=== PATIENT | female | born 1950 | race Caucasian/White ===

== ENCOUNTER 2017-11-29 10:01 | Outpatient (CLI) | payer MEDICARE, BC | END 2017-11-29 10:02 | disposition home or self-care (01) | LOC: BICMAMMO 10:01 | PROVIDERS: ATTEND Family Medicine | DX: Z12.31 Encounter for screening mammogram for malignant neoplasm of breast (principal) | CPT/HCPCS: 77063; 77067 ==

== ENCOUNTER 2018-11-26 06:13 | Outpatient (CLI) | payer MEDICARE, BC ==
[2018-11-26 11:40] LABS: Bilirubin Negative (Negative); Blood, Urine Negative (Negative); Clarity CLEAR (Clear); Glucose, Urine (Dipstick) Negative (Negative); Leukocyte Negative (Negative); Nitrite Negative (Negative); Protein, Urine (Dipstick) Negative (Neg-Trace); Specific Gravity, Urine 1.013 (1.002-1.036); Urobilinogen 0.2 mg/dL (0.2-1.0); pH, Urine 7.5 (5.0-9.0)
[2018-11-26 11:41] LABS: Prothrombin Time 13.2 SEC (12.0-14.7)
[2018-11-26 11:43] LABS: Bacteria/HPF None Seen HPF (None Seen); Hyaline Casts/LPF 0-3 HYALINE CAST LPF (0-3 Hyaline); RBC/HPF 0-3 HPF (0-3); Squamous Epithelial None Seen HPF (0-3); WBC/HPF None Seen HPF (0-3)
== END 2018-11-26 06:14 | disposition home or self-care (01) ==
LOC: LABBT 06:13
PROVIDERS: ATTEND Orthopaedic Surgery
DX: Z01.818 Encounter for other preprocedural examination (principal); M17.11 Unilateral primary osteoarthritis, right knee
CPT/HCPCS: 81001; 85610; 86850; 86900; 86901; 87081; 93005; 93010

== ENCOUNTER 2018-12-01 06:04 | Inpatient (IN) | payer MEDICARE, BC ==
[2018-12-01] MEDS ORDERED: Bupivacaine PF 0.5% 30 ML VIAL ONE (06:27)
[2018-12-01] MEDS ORDERED: Sodium Chloride 0.9% 100 ML ONE (06:38)
[2018-12-01] MEDS ORDERED: CEFAZOLIN 2 GM/50 ML BAG ONE (06:38)
[2018-12-01] MEDS ORDERED: Tranexamic Acid 1,000 MG/10 ML VIAL ONE ×2 (06:38→10:43)
[2018-12-01] MEDS ORDERED: Midazolam HCl 2 mg/2 ml Vial ONE (06:59)
[2018-12-01] MEDS ORDERED: Fentanyl 100 MCG/2 ML VIAL ONE ×4 (06:59→11:44)
[2018-12-01] MEDS ORDERED: Promethazine HCl 25 MG/ML VIAL IM PRN ×3 (07:42→10:19)
[2018-12-01] MEDS ORDERED: Zolpidem Tartrate 5 MG TAB PO PRN ×2 (07:42→08:32)
[2018-12-01] MEDS ORDERED: Ondansetron PF 4 MG/2 ML Vial IVP PRN ×2 (07:42→08:32)
[2018-12-01] MEDS ORDERED: HYDROcodone/Acetaminophen 10/325 mg Tablet PO PRN ×2 (07:42)
[2018-12-01] MEDS ORDERED: Ropivacaine HCl/PF 250 ML in Premix Bag 1 BAG NERVE BLCK SCH (07:42)
[2018-12-01] MEDS ORDERED: traMADol HCl 50 MG TAB PO PRN ×2 (07:42)
[2018-12-01] MEDS ORDERED: Fentanyl 100 MCG/2 ML VIAL IV PRN (07:43)
[2018-12-01] MEDS ORDERED: diphenhydrAMINE 25 MG CAP PO PRN (08:32)
[2018-12-01] MEDS ORDERED: Acetaminophen 325 MG TAB PO PRN (08:32)
[2018-12-01] MEDS ORDERED: CEFAZOLIN/Water 2 GM/20 ML SYRINGE SLOW IVP SCH (08:45)
[2018-12-01] MEDS ORDERED: Non-Formulary Item 1 EACH (Multivitamin [Multivitamins] 1 CAP) PO SCH (09:00)
[2018-12-01] MEDS ORDERED: Aspirin 81 mg Enteric Coated Tablet PO SCH (09:00)
[2018-12-01] MEDS ORDERED: Ondansetron HCl/PF 4 MG/2 ML Vial IVP PRN (10:19)
[2018-12-01] MEDS ORDERED: Promethazine HCl 25 MG/ML VIAL SLOW IVP PRN (10:19)
[2018-12-01] MEDS ORDERED: Ketorolac Tromethamine 30 MG/ML VIAL ONE (10:43)
[2018-12-01] MEDS ORDERED: Acetaminophen 1,000 MG in Premix Bag 1 BAG IVPB PRN (11:23)
[2018-12-01 13:07] VITALS: BMI 30.7
--- NOTE | 2018-12-01 13:07 | OP ---
DATE OF PROCEDURE: 12/01/2018 GROUP [facility] DEPARTMENT HEAD: Christopher Nina MD as well as Floresita Capellan PA-C PREOPERATIVE DIAGNOSIS: Right knee osteoarthrosis. POSTOPERATIVE DIAGNOSIS: Right knee osteoarthrosis. PROCEDURE: Right total knee replacement using Tim pinless navigation. ANESTHESIA: She had general anesthetic as well as preoperative block. BLOOD LOSS: Minimal. COMPLICATIONS: None. DISPOSITION: Recovery room in stable condition. IMPLANTS: To the right knee, [place]ham triathlon total knee system with a size 2 cruciate retaining femur, we used a size 2 primary tibial base plate, we used a 2 x 11 mm CS X3 tibial bearing, and we used a 27 x 8 symmetric patella, which was X3 as well. INDICATIONS: A 68-year-old female, who is active and had her left knee replaced and did well from that and at this time has failed nonoperative treatment for her right knee arthritis and wished to have the right knee replaced this time. PROCEDURE IN DETAIL: After all appropriate consent forms were explained and signed, the patient was taken back to the operating room and at this time was given general anesthetic. Once the level of anesthesia was appropriate, a well-padded tourniquet was placed on the leg, and the leg was then prepped and draped in standard surgical fashion. The limb was exsanguinated and tourniquet taken up to 300 mmHg. Midline incision was made with a 10 blade down through the skin and subcutaneous tissue. Bovie electrocautery was used to coagulate any brisk venous bleeding. A new blade was used to make a medial parapatellar arthrotomy. Small subperiosteal release was performed medially and excess fat pad was removed. The knee was flexed up to gain access to the femur. The femur was navigated and distal femoral resection was made. Epicondylar access was used to align our sizing jig and this was pinned in place. 4:1 cutting block was applied and pinned. Anterior and posterior chamfer cuts were then made. We navigated out our proximal tibia and made our proximal tibial resection. Spreaders were used to remove any posterior osteophytes off the back of the femur as well as remaining meniscal tissue. This was pinned in place. We trialed the polyethylene and a polyethylene gave us full extension and good stability throughout range of motion. Two towel clips and a saw were used to cut our patella. Three lug nuts were drilled and patella was trialed which sat nicely in the trochlear groove. We then drilled our femur and punched our tibia. All components were removed. The knee was thoroughly irrigated and dried. Cement was mixed into the cement gun on the back table. Components were then placed. The knee was held out in full extension until the cement had dried. All excess bone cement was removed. Multiple #2 Vicryl stitches as well as a Quill were used to close our extensor mechanism. 0 Quill followed by a running Monoderm was then used to close the skin. Surgicel glue was then used on the skin. Once this had dried, soft tissue dressing was applied to the limb, tourniquet was let down, and the toes pinked up nicely. The patient was then awakened and taken to the recovery room in stable condition. All counts were correct at the end of the case. The patient did receive preoperative IV antibiotics. The patient was injected with Exparel for postoperative pain relief. Job ID: [id number]
[2018-12-01] MEDS ORDERED: Bupivacaine 0.25% HCL 30 ML VIAL ONE (13:17)
[2018-12-01] MEDS ORDERED: Ropivacaine 0.5% HCl/PF (150 MG/30 ML VIAL) ONE (13:17)
[2018-12-01] MEDS ORDERED: Ondansetron PF 4 MG/2 ML Vial ONE (13:39)
[2018-12-01] MEDS ORDERED: Dexamethasone 20 MG/5 ML VIAL ONE (13:39)
[2018-12-01] MEDS ORDERED: PROPOFOL 200 MG/20 ML VIAL ONE (13:39)
[2018-12-01] MEDS ORDERED: ePHEDrine/0.9% NaCl/PF SYRINGE 50 mg/10 ml ONE (13:39)
[2018-12-01] MEDS ORDERED: PHENYLEPHRINE-NS 100 MCG/ML 10 ML SYRINGE ONE (13:39)
[2018-12-01] MEDS: Aspirin 81 mg Enteric Coated Tablet PO SCH ×2 (13:47→19:58)
[2018-12-01] MEDS: Fluticasone Propionate Nasal Spray 16 gm Bottle NASAL SCH (13:47)
[2018-12-01] MEDS: Losartan/Hydrochlorothiazide 100 mg/25 mg Tablet PO SCH (13:48)
[2018-12-01] MEDS: Ketorolac Tromethamine 30 MG/ML VIAL IVP SCH ×3 (13:48→23:48)
[2018-12-01] MEDS: Sodium Chloride 0.9% 1,000 ML IV SCH ×3 (13:57→19:22)
[2018-12-01] MEDS: CEFAZOLIN 2 GM/50 ML-DEXTROSE 2 GM in Premix Bag 1 BAG IVPB SCH ×2 (13:58→23:49)
--- NOTE | 2018-12-01 14:23 | PDOC.FPRHP ---
- History of Present Illness Chief Complaint: Consultation for medical management History of Present Illness: Ms. Pelayo is a very pleasant 68 yo F who is POD #0 from R TKR. She reports she is feeling well currently and has good pain control. This was an elective procedure and she recovered well from a L TKR in 2015. - Allergies/Adverse Reactions Allergies Allergy/AdvReac Type Severity Reaction Status Date / Time erythromycin base Allergy Verified 07/05/16 16:55 - Home Medications Medication Instructions Recorded Confirmed Type Diltiazem HCl [Cartia XT] 240 mg PO QAM 10/26/13 12/01/18 History Fluticasone Propionate 1 spray EA NARE DAILY 10/26/13 11/26/18 History [Fluticasone Propionate Nasal [place]] Tor's Wort 1 - 2 tab PO HS 10/26/13 11/26/18 History Acetaminophen 1,000 mg PO Q6HR PRN 12/20/15 11/26/18 History Atorvastatin Calcium [Lipitor] 20 mg PO HS 12/20/15 11/26/18 History Biotin 2,500 mcg PO DAILY 12/20/15 11/26/18 History Calcium Carbonate/Vitamin D3 2 tablet PO HS 12/20/15 11/26/18 History [Calcium 500 + D] Cetirizine HCl [Zyrtec] 10 mg PO HS 12/20/15 11/26/18 History Losartan/Hydrochlorothiazide 1 tablet PO QAM 12/20/15 11/26/18 History [Losartan-Hctz 100-25 mg Tab] Multivitamin [Multivitamins] 1 cap PO DAILY 12/20/15 11/26/18 History Aspirin [Aspir-Low] 81 mg PO DAILY 11/26/18 11/26/18 History Coconut Oil 1,000 mg PO BID 11/26/18 11/26/18 History Glucosamine/D3/Boswellia Kat 2 each PO DAILY 11/26/18 11/26/18 History [Osteo Bi-Flex Tablet] Icosapent Ethyl [Vascepa] 1 tab PO HS 11/26/18 11/26/18 History Triphalia 1 cap PO DAILY 11/26/18 History Tumeric 1 tab PO DAILY 11/26/18 History - History PMHx: HTN, HLD, GERD, migraines, anxiety PSHx: L TKR (2016), Carpal tunnel release (R 2013, L 2014), Hysterectomy and BSO (1982 for fibroids), Cholecystectomy (1991), R breast biopsy FHx: Dad: CT x3; Mom: Alzheimer's, kidney cancer; Sister: Leukemia Social: Denies tobacco, alcohol, drug use, retired from [employer] - Review of Systems General: denies: fever/chills, weight/appetite/sleep changes Eyes: denies: eye pain, vision changes ENT: denies: nasal congestion, rhinorrhea Respiratory: denies: cough, congestion Cardiovascular: denies: chest pain, palpitation Gastrointestinal: denies: nausea, vomiting, diarrhea Genitourinary: denies: incontinence, dysuria Skin: denies: rashes, lesions Musculoskeletal: reports: swelling (R knee (post-op)). denies: pain, tenderness Neurological: denies: syncope, weakness Psychological: reports: anxiety, depression - Vital signs BP: 119/71 HR: 76 RR: 16 Tmax: 97.5 Pox: 96% on 2L Wt: 76 kg - Physical Exam Constitutional: NAD, awake, alert and oriented HEENT: normocephalic and atraumatic, EOMI Neck: supple, trachea midline Heart: RRR, normal S1/S2 Lungs: CTAB, no respiratory distress Abdomen: soft, non-tender, bowel sounds present -Musculoskeletal: R knee in bandage, skin discolored from iodine Skin: no rash/lesions, good turgor Heme/Lymphatic: no unusual bruising or bleeding, no purpura Psychiatric: normal mood and affect, good judgment and insight, intact recent and remote memory FMR H&P: Results - Labs Result Diagrams: 12/02/18 06:01 - EKG Interpretation EKG: NSR FMR H&P: A/P - Problem List (1) Migraine Current Visit: No Status: Acute Code(s): G43.909 - MIGRAINE, UNSP, NOT INTRACTABLE, WITHOUT STATUS MIGRAINOSUS (2) Total knee replacement status Current Visit: No Status: Acute Code(s): Z96.659 - PRESENCE OF UNSPECIFIED ARTIFICIAL KNEE JOINT (3) Allergic rhinitis Current Visit: No Status: Chronic Code(s): J30.9 - ALLERGIC RHINITIS, UNSPECIFIED (4) Anxiety Current Visit: No Status: Chronic Code(s): F41.9 - ANXIETY DISORDER, UNSPECIFIED (5) GERD (gastroesophageal reflux disease) Current Visit: No Status: Chronic Code(s): K21.9 - GASTRO-ESOPHAGEAL REFLUX DISEASE WITHOUT ESOPHAGITIS (6) Hyperlipidemia Current Visit: No Status: Chronic Code(s): E78.5 - HYPERLIPIDEMIA, UNSPECIFIED (7) Hypertension Current Visit: No Status: Chronic Code(s): I10 - ESSENTIAL (PRIMARY) HYPERTENSION - Plan 68 yo F s/p R TKR on POD #0 1. POD #0 from R TKR - Pain mgmt and PT per primary team 2. HTN - Will resume home losartan/htcz and diltiazem - Monitor 3. HLD - Home atorvastatin 4. Anxiety - Home Humb[place] Wort 5. Seasonal allergies - Home Flonase and zyrtec PRN CODE: FULL (confirmed with patient, surrogate decision maker would be son, Pilo) DVT PPX: Per primary team, recommend considering Lovenox 40u qDay or Heparin 5000u TID GI PPX: Continue Prilosec while on BID ASA Assessment and plan discussed with Dr. Walls. Addendum - Attending - Attending Attestation Date/Time: 12/01/18 [id number] I personally evaluated the patient and discussed the management with Dr. Negron I agree with the History, Examination, Assessment and Plan documented above with any addition or exceptions noted below. 68 yo female admitted for right TKR on 12/01/18. HD#1 POD#0 Consulted for medical management. Patient doing well. No complaints. Pain in well controlled. VS reviewed. Labs reviewed. Medications reviewed. Will restart home meds and adjust as indicated. Pain control per primary team. Will make sure bowel regiment available for patient due to narcotic use. Recommend antiacoagulant use for DVT ppx. Sheyla score = 6 (reduced mobility, surgery, BMI of 30). Maddi
[2018-12-01] MEDS: Atorvastatin Calcium 20 MG TAB PO SCH (19:59)
[2018-12-01] MEDS: Calcium Carbonate + Vit D 1 TAB PO SCH (20:00)
[2018-12-01] MEDS: Loratadine 10 MG TAB PO SCH (20:00)
[2018-12-01] MEDS ORDERED: Vancomycin HCl 1 GM in Premix Bag 1 BAG IVPB SCH (20:00)
[2018-12-02] MEDS: Sodium Chloride 0.9% 1,000 ML IV SCH ×2 (04:21→13:47)
[2018-12-02] MEDS: Ketorolac Tromethamine 30 MG/ML VIAL IVP SCH ×4 (05:16→23:22)
[2018-12-02 06:25] LABS: Hemoglobin 12.1 g/dL (12.0-16.0); Mean Corpuscular HGB CONC 34.4 g/dL (32.0-36.0); Mean Corpuscular Volume 93.1 fL (78.0-98.0); Mean Platelet Volume 7.1 fL (7.4-10.4); Platelet Count 259 thou/uL (130-400); RBC Distribution Width 11.6 % (11.5-14.5); Red Blood Cell (RBC) Count 3.77 mill/uL (4.20-5.40); White Blood Cell (WBC) Count 11.9 thou/uL (4.8-10.8)
[2018-12-02] MEDS: Multivitamin W/ Minerals 1 TAB PO SCH (07:23)
[2018-12-02] MEDS: Senokot S 8.6-50 MG TAB PO SCH ×2 (07:23→20:22)
[2018-12-02] MEDS: Ferrous Gluconate 324 MG TAB PO SCH ×2 (07:23→17:16)
[2018-12-02] MEDS: Aspirin 81 mg Enteric Coated Tablet PO SCH ×2 (07:24→20:20)
[2018-12-02] MEDS: Losartan/Hydrochlorothiazide 100 mg/25 mg Tablet PO SCH (07:25)
[2018-12-02] MEDS: Fluticasone Propionate Nasal Spray 16 gm Bottle NASAL SCH (07:25)
--- NOTE | 2018-12-02 08:00 | PDOC.FM ---
- Subjective Subjective: This morning patient states she has mild pain the rt knee but not more than she expected. She worked with PT yesterday and was able to walk to the nurses station and back. She denies cough, sob, or pain below her knees. She denies fevers, chills, or sweats. States it was difficult to sleep because of all the noises in the hospital but has no other complaints. - Objective Vital Signs & Weight: Vital Signs (12 hours) Temp Pulse Resp BP Pulse Ox 12/02/18 07:25 86 12/02/18 03:17 98.5 F 86 16 128/70 94 L 12/02/18 00:00 98.6 F 99 18 110/58 L 93 L 12/01/18 20:00 98.6 F 103 H 18 137/73 93 L Weight Weight 76.204 kg I&O: 12/01/18 12/02/18 12/03/18 06:59 06:59 06:59 Intake Total 2920 Output Total 2550 Balance 370 Result Diagrams: 12/02/18 06:01 Phys Exam - Physical Examination Constitutional: NAD HEENT: PERRLA, moist MMs Neck: no nodes, full ROM Respiratory: no wheezing, clear to auscultation bilateral Cardiovascular: RRR, no significant murmur Gastrointestinal: soft, non-tender, no distention, positive bowel sounds Musculoskeletal: no edema, pulses present no sign or erythema or induration at surgical site, homans negative Neurological: non-focal, moves all 4 limbs Psychiatric: normal affect, A&O x 3 Skin: no rash, cap refill <2 seconds Dx/Plan (1) Total knee replacement status Code(s): Z96.659 - PRESENCE OF UNSPECIFIED ARTIFICIAL KNEE JOINT Status: Acute (2) Anxiety Code(s): F41.9 - ANXIETY DISORDER, UNSPECIFIED Status: Chronic (3) GERD (gastroesophageal reflux disease) Code(s): K21.9 - GASTRO-ESOPHAGEAL REFLUX DISEASE WITHOUT ESOPHAGITIS Status: Chronic (4) Hyperlipidemia Code(s): E78.5 - HYPERLIPIDEMIA, UNSPECIFIED Status: Chronic (5) Hypertension Code(s): I10 - ESSENTIAL (PRIMARY) HYPERTENSION Status: Chronic - Plan Plan: 68 yo F s/p R TKR on POD #1 # POD #1 from R TKR - Pain mgmt and PT per primary team - pain well-controlled this AM # Post-surgical DVT PPx - would rec lovenox 40u q day or heparin 5000u TID - defer to primary team # HTN - Will resume home losartan/htcz and diltiazem - WNL overnight # HLD - Home atorvastatin # Anxiety - Home Torrey Wort # Seasonal allergies - Home Flonase and zyrtec PRN CODE: FULL (confirmed with patient, surrogate decision maker would be son, Pilo) GI PPX: Continue Prilosec while on BID ASA DISPO: anticipate 1-2 days, defer to primary team Addendum - Attending - Attending Attestation Date/Time: 12/02/18 1018 I personally evaluated the patient and discussed the management with Dr. Hussein. I agree with the History, Examination, Assessment and Plan documented above with any addition or exceptions noted below. Patient admitted for TKR by Orthopedics team. We are consulted for medical mgmt. She is doing well on current medication regimen. BP at goal and pain well controlled. Dispo per primary team and will continue to follow and adjust meds as needed.
[2018-12-02] MEDS: Atorvastatin Calcium 20 MG TAB PO SCH (20:20)
[2018-12-02] MEDS: Calcium Carbonate + Vit D 1 TAB PO SCH (20:21)
[2018-12-02] MEDS: Loratadine 10 MG TAB PO SCH (20:22)
[2018-12-03] MEDS: Sodium Chloride 0.9% 1,000 ML IV SCH ×2 (00:45→14:08)
[2018-12-03] MEDS: Ketorolac Tromethamine 30 MG/ML VIAL IVP SCH (05:08)
--- NOTE | 2018-12-03 06:45 | PDOC.FM ---
- Subjective Subjective: This morning patient states she is feeling well overall. Pain is well controlled. She denies any issues overnight. No N/V/D. Was able to ambulate around 3rd floor with assitance. - Objective Vital Signs & Weight: Vital Signs (12 hours) Temp Pulse Resp BP Pulse Ox 12/03/18 04:32 98.2 F 93 18 144/87 H 96 12/03/18 00:14 98.3 F 86 18 128/73 95 12/02/18 21:02 98.3 F 76 22 H 119/72 96 12/02/18 20:00 96 Weight Weight 76.204 kg I&O: 12/01/18 12/02/18 12/03/18 06:59 06:59 06:59 Intake Total 2920 2019 Output Total 2550 Balance 370 2019 Result Diagrams: 12/03/18 08:14 Phys Exam - Physical Examination Constitutional: NAD HEENT: PERRLA, moist MMs Neck: no nodes Respiratory: no wheezing, clear to auscultation bilateral Cardiovascular: RRR, no significant murmur Gastrointestinal: soft, non-tender, no distention, positive bowel sounds Musculoskeletal: no edema, edema present Neurological: non-focal, moves all 4 limbs Psychiatric: normal affect, A&O x 3 Skin: no rash, cap refill <2 seconds Dx/Plan (1) Total knee replacement status Code(s): Z96.659 - PRESENCE OF UNSPECIFIED ARTIFICIAL KNEE JOINT Status: Acute (2) Anxiety Code(s): F41.9 - ANXIETY DISORDER, UNSPECIFIED Status: Chronic (3) GERD (gastroesophageal reflux disease) Code(s): K21.9 - GASTRO-ESOPHAGEAL REFLUX DISEASE WITHOUT ESOPHAGITIS Status: Chronic (4) Hyperlipidemia Code(s): E78.5 - HYPERLIPIDEMIA, UNSPECIFIED Status: Chronic (5) Hypertension Code(s): I10 - ESSENTIAL (PRIMARY) HYPERTENSION Status: Chronic - Plan Plan: # POD #2 from R TKR - Pain mgmt and PT per primary team - pain well-controlled this AM # Post-surgical DVT PPx - would rec lovenox 40u q day or heparin 5000u TID - defer to primary team # HTN -home losartan/htcz and diltiazem # HLD - Home atorvastatin # Anxiety - Home Juda Wort # Seasonal allergies - Home Flonase and zyrtec PRN CODE: FULL GI PPX: Continue Prilosec while on BID ASA DISPO: anticipate 1-2 days, defer to primary team Addendum - Attending - Attending Attestation Date/Time: 12/03/18 1030 I personally evaluated the patient and discussed the management with Dr. Hussein. I agree with the History, Examination, Assessment and Plan documented above with any addition or exceptions noted below. Patient doing well POD2 from TKR. Pain well controlled and PT going well. No changes to HTN mgmt at this time. Dispo per primary team.
[2018-12-03] MEDS: Losartan/Hydrochlorothiazide 100 mg/25 mg Tablet PO SCH (08:14)
[2018-12-03] MEDS: Aspirin 81 mg Enteric Coated Tablet PO SCH (08:14)
[2018-12-03] MEDS: Senokot S 8.6-50 MG TAB PO SCH (08:15)
[2018-12-03] MEDS: Ferrous Gluconate 324 MG TAB PO SCH (08:15)
[2018-12-03] MEDS: Multivitamin W/ Minerals 1 TAB PO SCH (08:15)
[2018-12-03 08:38] LABS: Hemoglobin 12.2 g/dL (12.0-16.0); Mean Corpuscular HGB CONC 32.2 g/dL (32.0-36.0); Mean Corpuscular Hemoglobin 31.5 pg (27.0-31.0); Mean Corpuscular Volume 97.9 fL (78.0-98.0); Mean Platelet Volume 7.3 fL (7.4-10.4); Platelet Count 242 thou/uL (130-400); RBC Distribution Width 11.9 % (11.5-14.5); Red Blood Cell (RBC) Count 3.86 mill/uL (4.20-5.40); White Blood Cell (WBC) Count 9.5 thou/uL (4.8-10.8)
[2018-12-03] MEDS ORDERED: Mag-Al 1200 mg/1200 mg/30 ML UDCUP PO PRN (12:26)
[2018-12-03 12:29] VITALS: BP 144/77; TEMP 97.4
[2018-12-03] MEDS: Fluticasone Propionate Nasal Spray 16 gm Bottle NASAL SCH (14:07)
== END 2018-12-03 14:54 | disposition home or self-care (01) | DRG 470 ==
LOC: SDC 06:04 → SJJU 12:56
PROVIDERS: ADMIT Orthopaedic Surgery; ATTEND Orthopaedic Surgery
PROC: 0SRC0J9 Replacement of Right Knee Joint with Synthetic Substitute, Cemented, Open Approach (ICD-10-PCS; principal; 2018-12-01)
DX: M17.11 Unilateral primary osteoarthritis, right knee (principal); I10 Essential (primary) hypertension; E78.5 Hyperlipidemia, unspecified; K21.9 Gastro-esophageal reflux disease without esophagitis; F41.9 Anxiety disorder, unspecified; G43.909 Migraine, unspecified, not intractable, without status migrainosus; J30.9 Allergic rhinitis, unspecified; Z96.652 Presence of left artificial knee joint; Z90.710 Acquired absence of both cervix and uterus; Z88.1 Allergy status to other antibiotic agents; Z90.49 Acquired absence of other specified parts of digestive tract; Z98.890 Other specified postprocedural states; Z90.722 Acquired absence of ovaries, bilateral
CPT/HCPCS: 36415; 85027; C1713; C1776; J0131; J1100; J1885; J2250; J2405; J2704; J2795; J3010; J3370; J7050; S0020

== ENCOUNTER 2018-12-22 13:53 | Outpatient (CLI) | payer MEDICARE, BC | END 2018-12-22 13:54 | disposition home or self-care (01) | LOC: BICMAMMO 13:53 | PROVIDERS: ATTEND Family Medicine | DX: Z12.31 Encounter for screening mammogram for malignant neoplasm of breast (principal); R92.1 Mammographic calcification found on diagnostic imaging of breast | CPT/HCPCS: 77063; 77067 ==

== ENCOUNTER 2019-12-23 08:30 | Outpatient (CLI) | payer MEDICARE, BC ==
--- NOTE | 2019-12-23 10:43 | MMO ---
Bilateral MAMMO Bilat Screen [facility]. CLINICAL HISTORY: Patient is 69 years old and is seen for screening. The patient has no family history of breast cancer. The patient has no personal history of cancer. The patient has a history of right Excisional Biopsy in - Benign. VIEWS: The views performed were: bilateral craniocaudal with tomosynthesis and bilateral mediolateral oblique with tomosynthesis. FILMS COMPARED: The present examination has been compared to prior imaging studies performed at [facility] on 11/23/2015, 11/27/2016, 11/29/2017 and 12/22/2018. This study has been interpreted with the assistance of computer-aided detection. MAMMOGRAM FINDINGS: There are scattered fibroglandular densities. There are stable benign appearing calcifications seen in both breasts. There are no suspicious masses, suspicious calcifications, or new areas of architectural distortion. IMPRESSION: THERE IS NO MAMMOGRAPHIC EVIDENCE OF MALIGNANCY. A ROUTINE FOLLOW-UP MAMMOGRAM IN 1 YEAR IS RECOMMENDED. THE RESULTS OF THIS EXAM WERE SENT TO THE PATIENT. ACR BI-RADS Category 2 - Benign finding MAMMOGRAPHY NOTE: 1. A negative mammogram report should not delay a biopsy if a dominant of clinically suspicious mass is present. 2. Approximately 10% to 15% of breast cancers are not detected by mammography. 3. Adenosis and dense breasts may obscure an underlying neoplasm. Reported by: JEFF VICKERS MD Electonically Signed: [id number]
== END 2019-12-23 08:31 | disposition home or self-care (01) ==
LOC: BICMAMMO 08:30
PROVIDERS: ATTEND Family Medicine
DX: Z12.31 Encounter for screening mammogram for malignant neoplasm of breast (principal); Z91.89 Other specified personal risk factors, not elsewhere classified
CPT/HCPCS: 77063; 77067

== ENCOUNTER 2020-09-30 13:14 | Outpatient (CLI) | payer MEDICARE, BC ==
[2020-09-30] MEDS ORDERED: Iopamidol-370 76% 500 ML 1 ML ONE (14:10)
--- NOTE | 2020-09-30 15:18 | CT ---
CT ANGIOGRAM NECK WITH CONTRAST CT ANGIOGRAM BRAIN WITH AND WITHOUT CONTRAST: DATE: 09/30/2020 HISTORY: 70-year-old female with ICD-10: "J 39.2 pharyngeal disorder" TECHNIQUE: After IV contrast injection, arterial bolus chasing technique scan performed from AP window to vertex of head. Coronal and sagittal 3-D MIP reconstructions. FINDINGS: Heavy calcified and noncalcified atherosclerotic plaque at aortic arch. Moderately heavy calcified atheromatous plaque at right carotid bulb extending a couple of centimeter s superiorly in the right internal carotid. This causes mild stenosis. No such plaque in the contralateral left carotid bulb. The origins of the vessels from the aortic arc h are somewhat poorly visualized, especially the origin of the right vertebral artery. The cervical portions of the bilateral vertebral arteries, common carotid arteries, and internal hunter tid arteries; and the M1 segments of bilateral MCAs, A1 and A2 segments of bilateral ACAs, intracranial vertebrals, basilar, P1 and P2 segments of right [employer], arteries, show no high-grade steno sis or occlusion. There is origin of the left [employer]. The bilateral parotid glands have diffusely heterogeneous attenuation with a somewhat micronodular ap pearance. A few punctate microcalcifications are present in the superficial lobe of the right parotid gland. Submandibular glands have similar heterogeneous nodular appearance. There is an aberrant right subclavian artery. There is no upper mediastinal mass. No cervical lymphadenopathy. There are retropharyngeal, tortuous courses of the bilateral internal carotid arteries, indenting the mucosal surfaces of posterior pharyngeal wall, especially on the left. No cervical lymphadenopathy. No major pathology of larynx. IMPRESSION: 1) atherosclerosis of proximal right internal carotid artery without high-grade stenosis. 2) appearance of parotid and submandibular glands raises possibility of Sjogren's disease. 3) tortuous, retropharyngeal courses of bilateral internal carotid arteries, anteriorly displacing po sterior pharyngeal wall.
== END 2020-09-30 13:15 | disposition home or self-care (01) ==
LOC: BICCT 13:14
PROVIDERS: ATTEND Student in an Organized Health Care Education/Training Program
DX: J39.2 Other diseases of pharynx (principal); I65.21 Occlusion and stenosis of right carotid artery
CPT/HCPCS: 70496; 70498; 82565; Q9967

== ENCOUNTER 2020-12-27 09:39 | Outpatient (CLI) | payer MEDICARE, BC ==
--- NOTE | 2020-12-27 09:56 | MMO ---
Bilateral MAMMO Bilat Screen [facility]. CLINICAL HISTORY: Patient is 70 years old and is seen for screening. The patient has no family history of breast cancer. The patient has no personal history of cancer. The patient has a history of right Excisional Biopsy in - Benign. VIEWS: The views performed were: bilateral craniocaudal with tomosynthesis and bilateral mediolateral oblique with tomosynthesis. FILMS COMPARED: The present examination has been compared to prior imaging studies performed at [facility] on 11/27/2016, 11/29/2017, 12/22/2018 and 12/23/2019. This study has been interpreted with the assistance of computer-aided detection. MAMMOGRAM FINDINGS: There are scattered fibroglandular densities. There are stable benign appearing calcifications seen in both breasts. There are no suspicious masses, suspicious calcifications, or new areas of architectural distortion. IMPRESSION: THERE IS NO MAMMOGRAPHIC EVIDENCE OF MALIGNANCY. A ROUTINE FOLLOW-UP MAMMOGRAM IN 1 YEAR IS RECOMMENDED. THE RESULTS OF THIS EXAM WERE SENT TO THE PATIENT. ACR BI-RADS Category 2 - Benign finding MAMMOGRAPHY NOTE: 1. A negative mammogram report should not delay a biopsy if a dominant of clinically suspicious mass is present. 2. Approximately 10% to 15% of breast cancers are not detected by mammography. 3. Adenosis and dense breasts may obscure an underlying neoplasm. Reported by: MIKE ONEILL MD Electonically Signed: [id number]
== END 2020-12-27 09:40 | disposition home or self-care (01) ==
LOC: BICMAMMO 09:39
PROVIDERS: ATTEND Family Medicine
DX: Z12.31 Encounter for screening mammogram for malignant neoplasm of breast (principal); Z91.89 Other specified personal risk factors, not elsewhere classified
CPT/HCPCS: 77063; 77067

== ENCOUNTER 2021-03-20 14:12 | Outpatient (CLI) | payer MEDICARE, BC | END 2021-03-20 14:13 | disposition home or self-care (01) | LOC: BICMAMMO 14:12 | PROVIDERS: ATTEND Family Medicine | DX: Z13.820 Encounter for screening for osteoporosis (principal); E28.39 Other primary ovarian failure; Z78.0 Asymptomatic menopausal state | CPT/HCPCS: 77080 ==

== ENCOUNTER 2021-08-05 10:51 | Inpatient (IN) | payer MEDICARE, BC ==
[~2021-08-05 10:51] MED LIST: Aspirin Chewable 81 MG TAB ONE; Heparin 10,000 UNITS/ 10 ML VIAL ONE; Iopamidol 370 76% 100 ML VIAL ONE; Iopamidol 370 76% 50 ML VIAL FS ONE
[2021-08-05] MEDS ORDERED: Ondansetron PF 4 MG/2 ML Vial ONE (11:07)
[2021-08-05] MEDS ORDERED: Morphine 4 MG/ML VIAL ONE (11:17)
[2021-08-05 11:27] LABS: #Basophils 0.1 thou/uL (0.0-0.2); #Eosinphils 0.1 thou/uL (0.0-0.7); #Lymphocytes 2.3 thou/uL (1.20-3.40); #Monocytes 0.9 thou/uL (0.11-0.59); #Neutrophils 6.7 thou/uL (1.40-6.50); %Basophils 1.5 % (0.0-1.0); %Eosinophils 1.3 % (0.0-10.0); %Lymphocytes 22.8 % (21.0-51.0); %Monocytes 8.5 % (0.0-10.0); Hemoglobin 15.1 g/dL (12.0-16.0); Mean Corpuscular HGB CONC 33.5 g/dL (32.0-36.0); Mean Corpuscular Hemoglobin 31.5 pg (27.0-31.0); Mean Corpuscular Volume 93.9 fL (78.0-98.0); Mean Platelet Volume 7.1 fL (7.4-10.4); Platelet Count 283 thou/uL (130-400); White Blood Cell (WBC) Count 10.2 thou/uL (4.8-10.8)
[2021-08-05 11:50] LABS: ALT (SGPT) 26 U/L (8-55); AST (SGOT) 21 U/L (5-34); Albumin 4.2 g/dL (3.4-4.8); Alkaline Phosphatase 88 U/L (40-110); Anion Gap 14 mmol/L (10-20); BUN (Urea Nitrogen) 17 mg/dL (9.8-20.1); Bilirubin, Total 0.5 mg/dL (0.2-1.2); Calc. Creatinine Clearance 0 mL/min (70-130); Calcium 9.8 mg/dL (7.8-10.44); Carbon Dioxide 28 mmol/L (23-31); Chloride 100 mmol/L (98-107); Globulin 3.5 g/dL (2.4-3.5); Glucose 141 mg/dL (83-110); Lipase 24 U/L (8-78); Potassium 3.8 mmol/L (3.5-5.1); Protein, Total 7.7 g/dL (5.8-8.1); Sodium 138 mmol/L (136-145)
[2021-08-05] MEDS ORDERED: Metoclopramide HCl 10 MG/2 ML VIAL ONE (11:51)
[2021-08-05] MEDS ORDERED: diphenhydrAMINE 50 MG/ML VIAL ONE (11:51)
[2021-08-05 12:12] LABS: CKMB 3.2 ng/mL (0-6.6)
[2021-08-05] MEDS ORDERED: Fentanyl 100 MCG/2 ML VIAL ONE ×2 (12:18→14:17)
[2021-08-05] MEDS ORDERED: Iopamidol-370 76% 500 ML 1 ML ONE (12:29)
[2021-08-05] MEDS ORDERED: Heparin 10,000 UNITS/ 10 ML VIAL ONE (14:05)
[2021-08-05] MEDS ORDERED: Lidocaine 1% (PF) 30 ML VIAL ONE (14:06)
[2021-08-05] MEDS ORDERED: Midazolam HCl 2 mg/2 ml Vial ONE (14:18)
[2021-08-05] MEDS ORDERED: Nitroglycerin 100MG/250ML BOT 0 ML ONE (14:18)
[2021-08-05] MEDS ORDERED: Aggrastat 12.5 MG/250 ML 250 ML ONE (14:46)
[2021-08-05 15:03] LABS: SARS-CoV-2 NAA Rapid Test Not Detected (NotDetected)
[2021-08-05] MEDS ORDERED: traMADol HCl 50 MG TAB PO PRN (15:05)
[2021-08-05] MEDS ORDERED: Nitroglycerin 0.4 MG TAB (25 Tab Bottle) SL PRN (15:05)
[2021-08-05] MEDS ORDERED: Morphine 2 MG/ML VIAL SLOW IVP PRN (15:05)
[2021-08-05] MEDS ORDERED: Aggrastat 12.5 MG/250 ML 250 ML IVPB SCH (15:15)
[2021-08-05] MEDS ORDERED: Sodium Chloride 0.9% 500 ML IV SCH (15:15)
[2021-08-05 16:44] LABS: Troponin I 8.035 ng/mL (< 0.028)
[2021-08-05] MEDS ORDERED: Communication Order-Pharmacy FS SCH (17:39)
[2021-08-05] MEDS ORDERED: Diazepam 5 MG TAB PO PRN (21:00)
[2021-08-05] MEDS ORDERED: Atorvastatin Calcium 40 MG TAB PO SCH (21:00)
[2021-08-05 23:28] LABS: Troponin I 119.104 ng/mL (< 0.028)
[2021-08-06 05:01] LABS: #Basophils 0.1 thou/uL (0.0-0.2); #Eosinphils 0.1 thou/uL (0.0-0.7); #Lymphocytes 1.6 thou/uL (1.20-3.40); #Monocytes 0.8 thou/uL (0.11-0.59); %Basophils 0.7 % (0.0-1.0); %Eosinophils 0.7 % (0.0-10.0); %Lymphocytes 15.1 % (21.0-51.0); %Monocytes 7.2 % (0.0-10.0); %Neutrophils 76.3 % (42.0-75.0); Hemoglobin 12.9 g/dL (12.0-16.0); Mean Corpuscular HGB CONC 33.9 g/dL (32.0-36.0); Mean Corpuscular Volume 94.3 fL (78.0-98.0); Mean Platelet Volume 7.1 fL (7.4-10.4); Platelet Count 247 thou/uL (130-400); Red Blood Cell (RBC) Count 4.05 mill/uL (4.20-5.40); White Blood Cell (WBC) Count 10.5 thou/uL (4.8-10.8)
[2021-08-06 05:32] LABS: ALT (SGPT) 66 U/L (8-55); AST (SGOT) 246 U/L (5-34); Albumin 3.6 g/dL (3.4-4.8); Alkaline Phosphatase 75 U/L (40-110); Anion Gap 14 mmol/L (10-20); BUN (Urea Nitrogen) 13 mg/dL (9.8-20.1); Bilirubin, Total 0.6 mg/dL (0.2-1.2); Calc. Creatinine Clearance 93 mL/min (70-130); Calcium 8.8 mg/dL (7.8-10.44); Carbon Dioxide 25 mmol/L (23-31); Chloride 104 mmol/L (98-107); Globulin 2.6 g/dL (2.4-3.5); Glucose 93 mg/dL (83-110); Potassium 4.2 mmol/L (3.5-5.1); Protein, Total 6.2 g/dL (5.8-8.1); Sodium 139 mmol/L (136-145)
[2021-08-06] MEDS ORDERED: Dexmedetomidine 200 MCG/2 ML VIAL ONE (07:08)
[2021-08-06] MEDS ORDERED: Fentanyl 250 MCG/5 ML VIAL ONE (07:08)
[2021-08-06] MEDS ORDERED: Midazolam HCl 5 mg/5 ml Vial ONE (07:08)
[2021-08-06] MEDS ORDERED: Albumin 5% 500 ML ONE (07:30)
[2021-08-06] MEDS ORDERED: ceFAZolin 2 GM/Dextrose 50 ML 2 GM in Premix Bag 1 BAG IVPB SCH (07:30)
[2021-08-06] MEDS ORDERED: EPINEPHrine 1 MG/ML AMP ONE (07:31)
[2021-08-06] MEDS ORDERED: Bupivacaine PF 0.5% 30 ML VIAL ONE (07:31)
[2021-08-06] MEDS ORDERED: Dexamethasone 4 mg/ml Vial ONE (07:31)
[2021-08-06] MEDS ORDERED: Glycopyrrolate 0.2 MG/ML 5 ML SYRINGE ONE (08:11)
[2021-08-06] MEDS ORDERED: Papaverine 60 MG/2 ML VIAL ONE (08:11)
[2021-08-06] MEDS ORDERED: Lidocaine 2% PF 100 mg/5 ml Syringe ONE (08:11)
[2021-08-06] MEDS ORDERED: Protamine Sulfate 250 MG/25 ML VIAL ONE (08:11)
[2021-08-06] MEDS ORDERED: Nitroglycerin 50 MG/250 ML BOT ONE (08:11)
[2021-08-06] MEDS ORDERED: Aminocaproic Acid 5 GM/20 ML VIAL ONE (08:11)
[2021-08-06] MEDS ORDERED: Sodium Bicarb 50 MEQ/50 ML Abboject 8.4% SYRINGE ONE (08:11)
[2021-08-06] MEDS ORDERED: Cardioplegic Soln 1,000 ML BAG ONE (08:11)
[2021-08-06] MEDS ORDERED: Thrombin 5000 UNITS/5 ML VIAL ONE (08:11)
[2021-08-06] MEDS ORDERED: Heparin 30,000 units/30 ml VIAL ONE (08:11)
[2021-08-06] MEDS ORDERED: Potassium Chloride 60 MEQ/30 ML VIAL ONE (08:11)
[2021-08-06] MEDS ORDERED: Ondansetron PF 4 MG/2 ML Vial ONE (08:11)
[2021-08-06] MEDS ORDERED: Heparin 5,000 UNITS/ML VIAL ONE (08:11)
[2021-08-06] MEDS ORDERED: Magnesium Sulfate 1 GM/2 ML VIAL ONE (08:11)
[2021-08-06] MEDS ORDERED: Lidocaine 1% PF 5 ML VIAL ONE (08:11)
[2021-08-06] MEDS ORDERED: Ketorolac Tromethamine 30 MG/ML VIAL ONE (08:11)
[2021-08-06] MEDS ORDERED: Calcium Chloride 1 GM/10 ML Abboject SYRINGE ONE (08:11)
[2021-08-06] MEDS ORDERED: Norepinephrine 4 MG/4 ML VIAL ONE (08:11)
[2021-08-06] MEDS ORDERED: Dexamethasone 20 MG/5 ML VIAL ONE (08:11)
[2021-08-06] MEDS ORDERED: PROPOFOL 200 MG/20 ML VIAL ONE (08:11)
[2021-08-06] MEDS ORDERED: Mannitol 12.5 GM/50 ML ONE (08:11)
[2021-08-06] MEDS ORDERED: Vecuronium 10 MG VIAL ONE (08:11)
[2021-08-06] MEDS ORDERED: Aspirin Chewable 81 MG TAB PO SCH (09:00)
[2021-08-06] MEDS ORDERED: PHENYLEPHRINE-NS 100 MCG/ML 10 ML SYRINGE ONE (10:20)
[2021-08-06] MEDS ORDERED: Magnesium 2 GM/50 ML 2 GM in Premix Bag 1 BAG IVPB SCH (12:04)
[2021-08-06] MEDS ORDERED: Mag-Al 1200 mg/1200 mg/30 ML UDCUP PO PRN (12:04)
[2021-08-06] MEDS ORDERED: Fentanyl 100 MCG/2 ML VIAL SLOW IVP PRN (12:04)
[2021-08-06] MEDS ORDERED: hydrALAZINE 20 MG/ML VIAL SLOW IVP PRN (12:04)
[2021-08-06] MEDS ORDERED: traMADol HCl 50 MG TAB PO PRN ×2 (12:04)
[2021-08-06] MEDS ORDERED: D5 1/2 NS w/20 mEq KCL 1,000 ML IV SCH (12:04)
[2021-08-06] MEDS ORDERED: Promethazine HCl 25 MG/ML VIAL IM PRN (12:04)
[2021-08-06] MEDS ORDERED: Bisacodyl 5 MG TAB PO PRN (12:04)
[2021-08-06] MEDS ORDERED: Morphine 2 MG/ML VIAL SLOW IVP PRN (12:04)
[2021-08-06] MEDS ORDERED: Hetastarch 6% 500 ML 500 ML IVPB PRN (12:04)
[2021-08-06] MEDS ORDERED: Nitroglycerin 50 MG/250 ML BOT 250 ML IVPB PRN (12:04)
[2021-08-06] MEDS ORDERED: Guaifenesin DM 100-10/5 ML UDCUP PO PRN (12:04)
[2021-08-06] MEDS ORDERED: Bisacodyl 10 MG SUPP PR PRN (12:04)
[2021-08-06] MEDS ORDERED: Potassium Chloride 20 MEQ/100 ML PREMIX BAG IVPB PRN (12:04)
[2021-08-06] MEDS ORDERED: Acetaminophen 325 MG TAB PO PRN (12:04)
[2021-08-06] MEDS ORDERED: Phenylephrine 40 MG in Sodium Chloride 0.9% 250 ML 250 ML IVPB PRN (12:04)
[2021-08-06] MEDS ORDERED: Norepinephrine 8 MG/0.9% NS 250 ML IVPB SCH (12:15)
[2021-08-06] MEDS ORDERED: Dextrose 50% Abboject 50 ML SYRINGE SLOW IVP PRN (12:30)
[2021-08-06] MEDS ORDERED: Dextrose 5% in Water 1,000 ML IV PRN (12:30)
[2021-08-06] MEDS ORDERED: HUMULIN R 100 UNITS in Sodium Chloride 0.9% 100 ML IVPB SCH (12:30)
[2021-08-06] MEDS ORDERED: Lantus 1000 UNITS/10 ML VIAL SC PRN (12:30)
[2021-08-06] MEDS: Ondansetron PF 4 MG/2 ML Vial IVP PRN (12:58)
[2021-08-06] MEDS: Ketorolac Tromethamine 30 MG/ML VIAL IVP SCH ×2 (13:00→21:20)
[2021-08-06 13:14] LABS: Hemoglobin 13.1 g/dL (12.0-16.0); Mean Corpuscular HGB CONC 33.8 g/dL (32.0-36.0); Mean Corpuscular Hemoglobin 31.8 pg (27.0-31.0); Mean Platelet Volume 7.3 fL (7.4-10.4); Platelet Count 157 thou/uL (130-400); RBC Distribution Width 12.1 % (11.5-14.5); Red Blood Cell (RBC) Count 4.11 mill/uL (4.20-5.40); White Blood Cell (WBC) Count 32.6 thou/uL (4.8-10.8)
[2021-08-06 13:25] LABS: INR-International Normal Ratio 1.5; Prothrombin Time 18.4 sec (12.0-14.7)
[2021-08-06 13:26] LABS: PTT 31.1 sec (22.9-36.1)
[2021-08-06] MEDS: Fentanyl 100 MCG/2 ML VIAL SLOW IVP PRN ×2 (13:30→19:36)
[2021-08-06 13:36] LABS: Anion Gap 11 mmol/L (10-20); BUN (Urea Nitrogen) 11 mg/dL (9.8-20.1); Calc. Creatinine Clearance 91 mL/min (70-130); Calcium 8.1 mg/dL (7.8-10.44); Carbon Dioxide 22 mmol/L (23-31); Chloride 109 mmol/L (98-107); Glucose 153 mg/dL (83-110); Potassium 4.1 mmol/L (3.5-5.1); Sodium 138 mmol/L (136-145)
[2021-08-06 13:45] LABS: Band 28 % (5-11); Lymphocytes 3 % (21-51); MDiff Complete? YES; Monocytes 3 % (0-10); Neutrophil 64 % (42-75); Platelet Morphology Comment Appears Adequate; RBC Morphology Normal; Reactive Lymphocytes 2 % (0-10)
[2021-08-06] MEDS: ceFAZolin 2 GM/Dextrose 50 ML 2 GM in Premix Bag 1 BAG IVPB SCH (17:14)
[2021-08-06 18:20] LABS: Hemoglobin 12.1 g/dL (12.0-16.0)
[2021-08-06] MEDS: Insulin Regular 300 UNITS/3 ML VIAL SC PRN ×2 (18:31→21:53)
[2021-08-06 18:33] LABS: Potassium 4.2 mmol/L (3.5-5.1)
[2021-08-06] MEDS ORDERED: Famotidine/PF 20 mg/2ml Vial SLOW IVP SCH (21:00)
[2021-08-06] MEDS: Atorvastatin Calcium 20 MG TAB PO SCH (21:19)
[2021-08-07] MEDS: ceFAZolin 2 GM/Dextrose 50 ML 2 GM in Premix Bag 1 BAG IVPB SCH (01:19)
[2021-08-07] MEDS: Ketorolac Tromethamine 30 MG/ML VIAL IVP SCH ×4 (03:50→23:41)
[2021-08-07 04:21] LABS: #Lymphocytes 0.5 thou/uL (1.20-3.40); #Monocytes 0.9 thou/uL (0.11-0.59); #Neutrophils 11.6 thou/uL (1.40-6.50); %Eosinophils 0.1 % (0.0-10.0); %Lymphocytes 3.9 % (21.0-51.0); %Monocytes 6.6 % (0.0-10.0); %Neutrophils 89.5 % (42.0-75.0); Hemoglobin 9.5 g/dL (12.0-16.0); Mean Corpuscular HGB CONC 33.2 g/dL (32.0-36.0); Mean Corpuscular Hemoglobin 31.5 pg (27.0-31.0); Mean Corpuscular Volume 94.9 fL (78.0-98.0); Mean Platelet Volume 7.7 fL (7.4-10.4); Platelet Count 127 thou/uL (130-400); RBC Distribution Width 12.1 % (11.5-14.5); Red Blood Cell (RBC) Count 3.02 mill/uL (4.20-5.40); White Blood Cell (WBC) Count 12.9 thou/uL (4.8-10.8)
[2021-08-07 04:26] LABS: Anion Gap 10 mmol/L (10-20); BUN (Urea Nitrogen) 13 mg/dL (9.8-20.1); Calc. Creatinine Clearance 87 mL/min (70-130); Calcium 7.9 mg/dL (7.8-10.44); Carbon Dioxide 25 mmol/L (23-31); Chloride 112 mmol/L (98-107); Glucose 93 mg/dL (83-110); Potassium 4.1 mmol/L (3.5-5.1); Sodium 143 mmol/L (136-145)
[2021-08-07] MEDS: Ondansetron PF 4 MG/2 ML Vial IVP PRN (06:19)
[2021-08-07] MEDS ORDERED: Nitroglycerin 0.4 MG TAB (25 Tab Bottle) SL PRN (07:23)
[2021-08-07] MEDS ORDERED: Fentanyl 100 MCG/2 ML VIAL SLOW IVP PRN ×2 (07:23)
[2021-08-07] MEDS ORDERED: Guaifenesin DM 100-10/5 ML UDCUP PO PRN (07:23)
[2021-08-07] MEDS ORDERED: diphenhydrAMINE 25 MG CAP PO PRN (07:23)
[2021-08-07] MEDS ORDERED: Ondansetron PF 4 MG/2 ML Vial IVP PRN (07:23)
[2021-08-07] MEDS ORDERED: Mineral Oil ENEMA PR PRN (07:23)
[2021-08-07] MEDS ORDERED: Milk Of Magnesia 30 ML UDCUP PO PRN (07:23)
[2021-08-07] MEDS ORDERED: Bisacodyl 5 MG TAB PO PRN (07:23)
[2021-08-07] MEDS ORDERED: Zolpidem Tartrate 5 MG TAB PO PRN (07:23)
[2021-08-07] MEDS ORDERED: Mag-Al 1200 mg/1200 mg/30 ML UDCUP PO PRN (07:23)
[2021-08-07] MEDS ORDERED: Bisacodyl 10 MG SUPP PR PRN (07:23)
[2021-08-07] MEDS: Aspirin 325 MG TAB PO SCH ×2 (07:38→07:46)
[2021-08-07] MEDS: Carvedilol 3.125 MG TAB PO SCH ×2 (07:46→20:56)
[2021-08-07] MEDS: Famotidine 20 MG TAB PO SCH ×2 (07:49→20:56)
[2021-08-07] MEDS ORDERED: Magnesium 2 GM/50 ML 2 GM in Premix Bag 1 BAG IVPB SCH (09:00)
[2021-08-07] MEDS: Atorvastatin Calcium 20 MG TAB PO SCH (20:56)
[2021-08-08] MEDS: Ketorolac Tromethamine 30 MG/ML VIAL IVP SCH ×3 (05:49→16:34)
[2021-08-08] MEDS: Aspirin 325 MG TAB PO SCH (08:53)
[2021-08-08] MEDS: Lisinopril 2.5 MG TAB PO SCH (08:54)
[2021-08-08] MEDS: Furosemide 40 MG TAB PO SCH (08:55)
[2021-08-08] MEDS: Carvedilol 3.125 MG TAB PO SCH ×2 (08:55→20:57)
[2021-08-08] MEDS: Famotidine 20 MG TAB PO SCH ×2 (08:55→20:57)
[2021-08-08] MEDS ORDERED: Potassium Chloride 10 MEQ TAB PO SCH (09:00)
[2021-08-08] MEDS: Potassium Chloride 10 MEQ TAB PO SCH (16:34)
[2021-08-08] MEDS: Atorvastatin Calcium 20 MG TAB PO SCH (20:57)
[2021-08-09] MEDS: Ketorolac Tromethamine 30 MG/ML VIAL IVP SCH ×3 (00:51→12:47)
[2021-08-09] MEDS: Lisinopril 2.5 MG TAB PO SCH ×2 (09:01→09:06)
[2021-08-09] MEDS: Famotidine 20 MG TAB PO SCH (09:01)
[2021-08-09] MEDS: Furosemide 40 MG TAB PO SCH (09:01)
[2021-08-09] MEDS: Potassium Chloride 10 MEQ TAB PO SCH (09:01)
[2021-08-09] MEDS: Aspirin 325 MG TAB PO SCH (09:01)
[2021-08-09] MEDS: Carvedilol 3.125 MG TAB PO SCH ×2 (09:01→09:06)
[2021-08-09 12:50] VITALS: BP 122/54; TEMP 98.2
[2021-08-15 14:49] LABS: Actual Bicarbonate (HCO3a) 25.1 mEq/L (22-28); Analyzer IN Cardio OR; Base Excess (BEa) 2.1 mEq/L (-2.0 to +3.0); CO2 Tension 33.8 mmHg (35.0-45.0); Calcium, Ionized (arterial) 1.11 mmol/L (1.12-1.30); Carboxyhemoglobin (COHb) 0.3 gm% (0.0-3.0); Hemoglobin (Hb) 12.9 g/dL (12.0-16.0); O2 Tension (PaO2), arterial 470.8 mmHg (> 70.0); Potassium - ABG Lab 3.81 mmol/L (3.70-5.30); pH, Arterial 7.49 (7.35-7.45)
[2021-08-15 14:49] LABS: Actual Bicarbonate (HCO3a) 22.5 mEq/L (22-28); Analyzer IN Cardio OR; Base Excess (BEa) -1.6 mEq/L (-2.0 to +3.0); CO2 Tension 35.6 mmHg (35.0-45.0); Calcium, Ionized (arterial) 1.01 mmol/L (1.12-1.30); Carboxyhemoglobin (COHb) 0.3 gm% (0.0-3.0); Hemoglobin (Hb) 11.7 g/dL (12.0-16.0); O2 Tension (PaO2), arterial 402.2 mmHg (> 70.0); Potassium - ABG Lab 3.82 mmol/L (3.70-5.30); pH, Arterial 7.42 (7.35-7.45)
[2021-08-15 14:50] LABS: Actual Bicarbonate (HCO3a) 25.8 mEq/L (22-28); Analyzer IN Cardio OR; Base Excess (BEa) 1.5 mEq/L (-2.0 to +3.0); CO2 Tension 38.9 mmHg (35.0-45.0); Calcium, Ionized (arterial) 0.86 mmol/L (1.12-1.30); Carboxyhemoglobin (COHb) 0.1 gm% (0.0-3.0); Hemoglobin (Hb) 8.8 g/dL (12.0-16.0); O2 Tension (PaO2), arterial 375.6 mmHg (> 70.0); Potassium - ABG Lab 3.71 mmol/L (3.70-5.30); pH, Arterial 7.44 (7.35-7.45)
[2021-08-15 14:50] LABS: Actual Bicarbonate (HCO3a) 24.5 mEq/L (22-28); Analyzer IN Cardio OR; Base Excess (BEa) 0.7 mEq/L (-2.0 to +3.0); CO2 Tension 35.3 mmHg (35.0-45.0); Calcium, Ionized (arterial) 1.14 mmol/L (1.12-1.30); Carboxyhemoglobin (COHb) 0.1 gm% (0.0-3.0); Hemoglobin (Hb) 8.4 g/dL (12.0-16.0); Potassium - ABG Lab 3.79 mmol/L (3.70-5.30); pH, Arterial 7.46 (7.35-7.45)
[2021-08-15 14:50] LABS: Analyzer IN Cardio OR; Base Excess (BEa) -0.1 mEq/L (-2.0 to +3.0); CO2 Tension 36.5 mmHg (35.0-45.0); Carboxyhemoglobin (COHb) 0.5 gm% (0.0-3.0); Hemoglobin (Hb) 8.1 g/dL (12.0-16.0); O2 Tension (PaO2), arterial 370.3 mmHg (> 70.0); Potassium - ABG Lab 4.31 mmol/L (3.70-5.30); pH, Arterial 7.44 (7.35-7.45)
[2021-08-15 14:51] LABS: Actual Bicarbonate (HCO3a) 22.2 mEq/L (22-28); Analyzer IN Cardio OR; Base Excess (BEa) -2.4 mEq/L (-2.0 to +3.0); CO2 Tension 37.6 mmHg (35.0-45.0); Calcium, Ionized (arterial) 1.05 mmol/L (1.12-1.30); Carboxyhemoglobin (COHb) 0.3 gm% (0.0-3.0); Hemoglobin (Hb) 11.9 g/dL (12.0-16.0); O2 Tension (PaO2), arterial 76.1 mmHg (> 70.0); Potassium - ABG Lab 3.42 mmol/L (3.70-5.30); pH, Arterial 7.39 (7.35-7.45)
[2021-08-15 14:51] LABS: Puncture Site Arterial Line
[2021-08-15 14:52] LABS: Puncture Site Arterial Line
[2021-08-15 14:52] LABS: Puncture Site Arterial Line
[2021-08-15 14:52] LABS: Puncture Site Arterial Line
[2021-08-15 14:53] LABS: Puncture Site Arterial Line
[2021-08-15 14:53] LABS: Puncture Site Arterial Line
== END 2021-08-09 15:45 | disposition home or self-care (01) | DRG 232 ==
LOC: ERS 10:51 → ERHOLD 12:42 → CCU 15:36 → 3SE 08-07 08:35 → 2NO 08-07 10:46
PROVIDERS: ADMIT Internal Medicine; ATTEND Internal Medicine
PROC: 02703ZZ Dilation of Coronary Artery, One Artery, Percutaneous Approach (ICD-10-PCS; 2021-08-05)
PROC: 4A023N7 Measurement of Cardiac Sampling and Pressure, Left Heart, Percutaneous Approach (ICD-10-PCS; 2021-08-05)
PROC: B2111ZZ Fluoroscopy of Multiple Coronary Arteries using Low Osmolar Contrast (ICD-10-PCS; 2021-08-05)
PROC: B2151ZZ Fluoroscopy of Left Heart using Low Osmolar Contrast (ICD-10-PCS; 2021-08-05)
PROC: 02100Z9 Bypass Coronary Artery, One Artery from Left Internal Mammary, Open Approach (ICD-10-PCS; principal; 2021-08-06)
PROC: 021209W Bypass Coronary Artery, Three Arteries from Aorta with Autologous Venous Tissue, Open Approach (ICD-10-PCS; 2021-08-06)
PROC: 06BP4ZZ Excision of Right Saphenous Vein, Percutaneous Endoscopic Approach (ICD-10-PCS; 2021-08-06)
PROC: 5A1221Z Performance of Cardiac Output, Continuous (ICD-10-PCS; 2021-08-06)
DX: I21.29 ST elevation (STEMI) myocardial infarction involving other sites (principal); Z20.822 Contact with and (suspected) exposure to COVID-19; I10 Essential (primary) hypertension; E78.5 Hyperlipidemia, unspecified; J45.909 Unspecified asthma, uncomplicated; Z96.653 Presence of artificial knee joint, bilateral; F41.9 Anxiety disorder, unspecified; G43.909 Migraine, unspecified, not intractable, without status migrainosus; K21.9 Gastro-esophageal reflux disease without esophagitis; F32.9 Major depressive disorder, single episode, unspecified; I25.10 Atherosclerotic heart disease of native coronary artery without angina pectoris; Z90.710 Acquired absence of both cervix and uterus; Z90.49 Acquired absence of other specified parts of digestive tract; Z88.1 Allergy status to other antibiotic agents; Z79.82 Long term (current) use of aspirin; Z79.899 Other long term (current) drug therapy; Z80.6 Family history of leukemia; Z82.41 Family history of sudden cardiac death; Z80.51 Family history of malignant neoplasm of kidney; Z79.51 Long term (current) use of inhaled steroids
CPT/HCPCS: 36415; 36416; 36430; 70450; 71045; 71275; 80048; 80053; 82553; 82805; 83690; 83880; 84484; 85025; 85347; 85610; 85730; 86850; 86900; 86901; 92920; 93005; 93010; 93458; 93798; 94760; 96365; 96367; 96375; 96376; 99152; 99153; C1769; J0171; J0690; J1100; J1200; J1644; J1815; J1885; J2001; J2150; J2250; J2270; J2405; J2440; J2704; J2720; J2765; J3010; J3246; J3370; J3475; J3480; J7030; P9045; Q9967; S0017; S0020; S0028; U0002

== ENCOUNTER 2021-08-15 13:42 | Outpatient (CLI) | payer MEDICARE, BC ==
[2021-08-15 16:03] LABS: #Basophils 0.1 thou/uL (0.0-0.2); #Eosinphils 0.2 thou/uL (0.0-0.7); #Lymphocytes 1.4 thou/uL (1.20-3.40); #Monocytes 0.5 thou/uL (0.11-0.59); #Neutrophils 4.8 thou/uL (1.40-6.50); %Basophils 1.3 % (0.0-1.0); %Eosinophils 3.4 % (0.0-10.0); %Lymphocytes 20.1 % (21.0-51.0); %Monocytes 6.6 % (0.0-10.0); %Neutrophils 68.6 % (42.0-75.0); Hemoglobin 11.8 g/dL (12.0-16.0); Mean Corpuscular HGB CONC 33.1 g/dL (32.0-36.0); Mean Corpuscular Hemoglobin 31.5 pg (27.0-31.0); Mean Corpuscular Volume 95.2 fL (78.0-98.0); Mean Platelet Volume 7.2 fL (7.4-10.4); Platelet Count 477 thou/uL (130-400); RBC Distribution Width 12.2 % (11.5-14.5); Red Blood Cell (RBC) Count 3.75 mill/uL (4.20-5.40)
[2021-08-15 17:48] LABS: ALT (SGPT) 20 U/L (8-55); AST (SGOT) 19 U/L (5-34); Albumin 3.9 g/dL (3.4-4.8); Alkaline Phosphatase 101 U/L (40-110); Anion Gap 12 mmol/L (10-20); BUN (Urea Nitrogen) 17 mg/dL (9.8-20.1); Bilirubin, Total 0.4 mg/dL (0.2-1.2); Calc. Creatinine Clearance 0 mL/min (70-130); Calcium 9.1 mg/dL (7.8-10.44); Carbon Dioxide 29 mmol/L (23-31); Chloride 98 mmol/L (98-107); Glucose 97 mg/dL (83-110); Potassium 4.1 mmol/L (3.5-5.1); Protein, Total 6.9 g/dL (5.8-8.1); Sodium 135 mmol/L (136-145)
== END 2021-08-15 13:43 | disposition home or self-care (01) ==
LOC: SCSRAD 13:42
PROVIDERS: ATTEND Family Medicine
DX: I25.810 Atherosclerosis of coronary artery bypass graft(s) without angina pectoris (principal); J90 Pleural effusion, not elsewhere classified
CPT/HCPCS: 36415; 71046; 80053; 85025

== ENCOUNTER 2022-03-20 11:16 | Outpatient (CLI) | payer MEDICARE, BC ==
[~2022-03-20 11:16] MED LIST changes: -Aspirin Chewable 81 MG TAB ONE; -Heparin 10,000 UNITS/ 10 ML VIAL ONE; -Iopamidol 370 76% 100 ML VIAL ONE; -Iopamidol 370 76% 50 ML VIAL FS ONE; +Magnevist 469MG/ML 20 ML VIAL ONE
== END 2022-03-20 11:17 | disposition home or self-care (01) ==
LOC: MRI 11:16
PROVIDERS: ATTEND Student in an Organized Health Care Education/Training Program
DX: H90.3 Sensorineural hearing loss, bilateral (principal)
CPT/HCPCS: 70553; A9579

== ENCOUNTER 2022-03-29 16:30 | Outpatient (CLI) | payer MEDICARE, BC | END 2022-03-29 16:31 | disposition home or self-care (01) | LOC: SLEEPLAB 16:30 | PROVIDERS: ATTEND Family Medicine | DX: G47.33 Obstructive sleep apnea (adult) (pediatric) (principal); R53.83 Other fatigue; R06.83 Snoring; F41.9 Anxiety disorder, unspecified; I10 Essential (primary) hypertension; I25.10 Atherosclerotic heart disease of native coronary artery without angina pectoris; G47.00 Insomnia, unspecified | CPT/HCPCS: 95800 ==

== ENCOUNTER 2022-09-05 20:05 | Emergency (ER) | payer MEDICARE, BC ==
[2022-09-05] MEDS ORDERED: Metoclopramide HCl 10 MG/2 ML VIAL ONE (23:38)
[2022-09-05] MEDS ORDERED: Ketorolac Tromethamine 30 MG/ML VIAL ONE (23:38)
== END 2022-09-06 01:03 | disposition home or self-care (01) ==
LOC: ERS 20:05
DX: G43.909 Migraine, unspecified, not intractable, without status migrainosus (principal); I10 Essential (primary) hypertension; E78.5 Hyperlipidemia, unspecified; I25.2 Old myocardial infarction; J45.909 Unspecified asthma, uncomplicated; Z79.82 Long term (current) use of aspirin; Z79.899 Other long term (current) drug therapy
CPT/HCPCS: 70450; 96365; 96375; J1885; J2765

== ENCOUNTER 2023-01-21 11:37 | Outpatient (CLI) | payer MEDICARE, BC | END 2023-01-21 11:38 | disposition home or self-care (01) | LOC: BICMAMMO 11:37 | PROVIDERS: ATTEND Family Medicine | DX: Z12.31 Encounter for screening mammogram for malignant neoplasm of breast (principal); R92.1 Mammographic calcification found on diagnostic imaging of breast; Z91.89 Other specified personal risk factors, not elsewhere classified | CPT/HCPCS: 77063; 77067 ==

== ENCOUNTER 2023-12-17 16:00 | Outpatient (CLI) | payer MEDICARE | END 2023-12-17 16:01 | disposition home or self-care (01) | LOC: SLEEPLAB 16:00 | PROVIDERS: ATTEND Nurse Practitioner Family | DX: G47.33 Obstructive sleep apnea (adult) (pediatric) (principal); F41.9 Anxiety disorder, unspecified; I25.10 Atherosclerotic heart disease of native coronary artery without angina pectoris; I10 Essential (primary) hypertension; E78.5 Hyperlipidemia, unspecified; K21.9 Gastro-esophageal reflux disease without esophagitis; J30.9 Allergic rhinitis, unspecified; I25.2 Old myocardial infarction; G43.909 Migraine, unspecified, not intractable, without status migrainosus; K22.2 Esophageal obstruction | CPT/HCPCS: 95811 ==

== ENCOUNTER 2024-01-23 08:53 | Outpatient (CLI) | payer MEDICARE | END 2024-01-23 08:54 | disposition home or self-care (01) | LOC: BICMAMMO 08:53 | PROVIDERS: ATTEND Nurse Practitioner Family | DX: Z12.31 Encounter for screening mammogram for malignant neoplasm of breast (principal); Z91.89 Other specified personal risk factors, not elsewhere classified | CPT/HCPCS: 77063; 77067 ==

== ENCOUNTER 2024-09-28 08:45 | Outpatient (CLI) | payer MEDICARE | END 2024-09-28 08:46 | disposition home or self-care (01) | LOC: BICMAMMO 08:45 | PROVIDERS: ATTEND Nurse Practitioner Family | DX: Z78.0 Asymptomatic menopausal state (principal); M85.852 Other specified disorders of bone density and structure, left thigh | CPT/HCPCS: 77080 ==